=== PATIENT | male | born 1930 | race Caucasian/White ===

== ENCOUNTER → 2016-09-03 | Outpatient (CLI) | payer BC ==
[~2016-09-03] MED LIST: ACET-1311 PO; ADVIN25/60 INH; AMLO-110 PO; ASPI81TA28 PO; ATOR-24 PO; CHOL1000 PO; DONE1TAB11 PO; ENAL10TA88 PO; FINA5TAB PO; METO-217 PO; METO50TA16 PO; MULT-506 PO; NMN10 PO; NMN5 PO; PRLSR20 PO; TAMS0.4C38 PO
--- NOTE | 2016-09-03 18:33 | DIAGNOSTIC IMAGING REPORT ---
ULTRASOUND TESTES AND SCROTUM CLINICAL HISTORY: Testicular swelling. COMPARISON STUDY: Scrotal ultrasound dated 09/27/2015. TECHNIQUE: Real-time, grayscale, and color Doppler sonography of the testes and scrotum is performed. Images are reviewed in the transverse and longitudinal planes. FINDINGS: The testes are mildly atrophic and slightly heterogeneous in echotexture. The right testis measures 3.2 x 0.9 2.1 cm and the left testis measures 3.6 x 1.6 x 1.5 cm. No intratesticular mass is seen. Testicular blood flow is normal and symmetric. Normal Doppler waveforms are identified in both testes. The epididymal heads are normal as visualized. No varicocele or hydrocele is seen. A large right internal hernia is again noted which contains peristalsing bowel loops. This is similar appearance to the 09/27/2015 examination. IMPRESSION: 1. No acute testicular abnormality is seen. 2. A large right inguinal hernia containing peristalsing bowel loops is again noted. This was also seen on 09/27/2015. Electronically signed by: Chalo Penn M.D. 09/03/2016 6:32 PM Dictated Date/Time: 09/03/2016 6:29 PM
== END | disposition home or self-care (01) ==
LOC: C.ULTR 17:24
PROVIDERS: ATTEND Family Medicine
DX: N50.89 Other specified disorders of the male genital organs (principal); K40.90 Unilateral inguinal hernia, without obstruction or gangrene, not specified as recurrent

== ENCOUNTER 2017-01-10 21:58 | Emergency (ER) | payer BC ==
[~2017-01-10] VITALS: Ht 152.4 cm; Wt 66.6 kg
[~2017-01-10 21:58] MED LIST changes: -ACET-1311 PO; -AMLO-110 PO; -METO-217 PO; -NMN10 PO
[2017-01-10 22:01] VITALS: TEMP 36.7; Ht 152.4 cm; Wt 66.6 kg
[2017-01-10 22:48] LABS: BASO % 0.5 %; BASO ABS # 0.04 K/uL (0-0.2); COMPLETE YES; EOS % 2.4 %; HEMATOCRIT 34.7 % (42-52); IG% 0.1 %; LYMPH ABS # 0.78 K/uL (1.2-3.4); MEAN CELL VOLUME 91.8 fL (80-100); MEAN CORPUSCULAR HEMOGLOBIN 30.2 pg (25-34); MEAN CORPUSCULAR HGB CONC 32.9 g/dl (32-36); MEAN PLATELET VOLUME 9.4 fL (7.4-10.4); MONO % 3.8 %; NEUT % 84.2 %; PLATELET COUNT 214 K/uL (130-400); RED BLOOD COUNT 3.78 M/uL (4.7-6.1); WHITE BLOOD COUNT 8.65 K/uL (4.8-10.8)
--- NOTE | 2017-01-10 22:53 | DIAGNOSTIC IMAGING REPORT ---
SINGLE VIEW CHEST CLINICAL HISTORY: Vomiting. FINDINGS: An AP, portable, upright chest radiograph is compared to study dated 03/17/2016. The examination is degraded by portable technique and patient rotation. The patient is status post midline sternotomy. The heart is enlarged and there is atherosclerotic calcification of the thoracic aorta. The pulmonary vascular is noncongested. There is mild bibasilar atelectasis. The lungs and pleural spaces are otherwise clear. No pneumothorax is seen. The skeletal structures are osteopenic. The bony thorax is grossly intact. IMPRESSION: Cardiomegaly with no acute cardiopulmonary abnormality. Electronically signed by: Chalo Penn M.D. 01/10/2017 10:51 PM Dictated Date/Time: 01/10/2017 10:50 PM
[2017-01-10] MEDS ORDERED: NMN10 PO (22:54)
[2017-01-10] MEDS ORDERED: AMLO-110 PO (22:54)
[2017-01-10] MEDS ORDERED: METO-217 PO (22:54)
[2017-01-10] MEDS ORDERED: ACET-1311 PO (22:54)
[2017-01-10 23:08] LABS: BUN/CREATININE RATIO 19.5 (10-20); CREATININE 1.5 mg/dl (0.60-1.40); POTASSIUM 4.5 mmol/L (3.5-5.1)
[2017-01-10 23:54] LABS: URINE APPEARANCE CLEAR (CLEAR); URINE BILIRUBIN NEG (NEG); URINE COLOR YELLOW; URINE NITRITE NEG (NEG); URINE PH 6.5 (4.5-7.5); URINE SPECIFIC GRAVITY 1.018 (1.000-1.030); UROBILINOGEN NEG (NEG); ZZUR CULT IF INDIC CLEAN CATCH NO
[2017-01-11 00:02] LABS: MANUAL MICROSCOPIC REQUIRED? NO; REVIEW REQ? NO
--- NOTE | 2017-01-11 00:19 | EMERGENCY ROOM VISIT NOTE ---
ED Visit Note First contact with patient: 22:06 I did evaluate and examine this patient myself. I did guide management for the patient. I agree with the APC's assessment as discussed. Please see the APC's dictation for further details. I did independently review the 12-lead EKG, urinalysis, x-rays and blood work. The patient presented with 3 episodes of vomiting. He is currently asymptomatic. He does have a large nontender lower abdominal hernia. He will follow closely with his doctor.
[2017-01-11 00:45] VITALS: BP 176/78; PULSE 112; O2SAT 94
--- NOTE | 2017-01-11 00:47 | EMERGENCY ROOM VISIT NOTE ---
History First contact with patient: 22:06 Chief Complaint: VOMITING Stated Complaint: VOMITING Nursing Triage Summary: Pt from [facility]. Pt arrives with son. Pt vomited today after eating dinner at [facility]. History of Present Illness The patient is a 86 year old male who presents to the Emergency Room with complaints of multiple episodes of vomiting after eating dinner at 1730 this evening. Per son, patient ate roast beef, mashed potatoes and chicken noodle soup for dinner at [facility] this evening. After patient's son left the senior living, he was called at about 2100 and was told that the patient vomited 4 times. Per staff, patient said that it felt like something was caught in his throat, and after coughing to try to get it up, he became nauseous and vomited. Patient states that he felt better after vomiting, and denies having any abdominal pain throughout the episode. He is now feeling improved. Son states that he ate the same food as the patient this evening but he did not experience similar symptoms after eating. Patient has known left sided inguinal hernia but no increased pain to the area. Denies any other abdominal pain. Patient and son deny recent fevers, chills, sore throat, chest pain, or shortness of breath. Denies nausea or vomiting prior to onset this evening. Had a normal bowel movement this morning, no diarrhea, hematochezia or melena. No other complaints at this time. Review of Systems A complete 10 point review of systems was reviewed with the patient with pertinent positives and negatives as per history of present illness. All else were negative. Past Medical/Surgical History Medical Problems: (1) Altered mental state (2) Elevated troponin Family History Noncontributory secondary to age Social History Smoking Status: Never Smoker Drug Use: none Marital Status: Housing Status: senior living Occupation Status: retired Current/Historical Medications Scheduled Amlodipine (Norvasc), 5 MG PO DAILY Aspirin (Aspirin Ec), 81 MG PO QAM Atorvastatin (Lipitor), 40 MG PO HS Cholecalciferol (Vitamin D3), 1,000 INTER.UNIT PO QAM Enalapril (Vasotec), 10 MG PO QAM Finasteride (Proscar), 5 MG PO DAILY Fluticasone Prop/Salmeterol (Advair Diskus 250/50 60 Dose), 1 PUFF INH DAILY Memantine (Namenda), 10 MG PO QAM Metoprolol Succinate (Toprol Xl), 50 MG PO QAM Multivitamin (Multivitamin), 1 TAB PO QAM Tamsulosin Hcl (Flomax), 0.4 MG PO QPM Scheduled PRN Acetaminophen (Tylenol), 650 MG PO QID PRN for Pain or Fever Allergies Coded Allergies: No Known Allergies (Unverified , 01/10/17) NO NOTABLE ALLERGIES PER H&P Physical Exam Vital Signs Date Time Temp Pulse Resp B/P (MAP) Pulse Ox O2 Delivery O2 Flow Rate FiO2 01/11/17 00:45 112 20 176/78 94 01/11/17 00:15 112 20 176/78 94 Room Air 01/10/17 22:46 58 01/10/17 22:01 36.7 72 20 160/75 96 Room Air Physical Exam VITALS: Vitals are noted on the nurse's note and reviewed by myself. Vital signs stable. GENERAL: This is an 86-year-old male, in no acute distress, nondiaphoretic, well -developed well-nourished. SKIN: Capillary reflex less than 2 seconds. HEENT: Normocephalic. PERRLA. EOMI. Mucous membranes moist. Neck is supple without nuchal rigidity. HEART: Regular rate and rhythm without murmurs gallops or rubs. LUNGS: Clear to auscultation bilaterally without wheezes, rales or rhonchi. ABDOMEN: Positive bowel sounds x 4. Soft, nontender to palpation. There is a large left inguinal hernia which is reducible. There are no skin changes overlying the hernia. NEURO: Patient was alert and oriented to person and place. Medical Decision & Procedures ER Provider Diagnostic Interpretation: CHEST X-RAY: No acute cardiopulmonary abnormalities. ABDOMEN X-RAY: No bowel obstruction or free air. Normal bowel gas pattern. Laboratory Results 01/10/17 22:30 Red Blood Count 3.78, Mean Corpuscular Volume 91.8, Mean Corpuscular Hemoglobin 30.2, Mean Corpuscular Hemoglobin Concent 32.9, Mean Platelet Volume 9.4, Neutrophils (%) (Auto) 84.2, Lymphocytes (%) (Auto) 9.0, Monocytes (%) (Auto) 3.8, Eosinophils (%) (Auto) 2.4, Basophils (%) (Auto) 0.5, Neutrophils # (Auto) 7.28, Lymphocytes # (Auto) 0.78, Monocytes # (Auto) 0.33, Eosinophils # (Auto) 0.21, Basophils # (Auto) 0.04 01/10/17 22:30 Test 01/10/17 22:30 01/10/17 23:40 White Blood Count 8.65 K/uL (4.8-10.8) Red Blood Count 3.78 M/uL (4.7-6.1) Hemoglobin 11.4 g/dL (14.0-18.0) Hematocrit 34.7 % (42-52) Mean Corpuscular Volume 91.8 fL (80-100) Mean Corpuscular Hemoglobin 30.2 pg (25-34) Mean Corpuscular Hemoglobin Concent 32.9 g/dl (32-36) Platelet Count 214 K/uL (130-400) Mean Platelet Volume 9.4 fL (7.4-10.4) Neutrophils (%) (Auto) 84.2 % Lymphocytes (%) (Auto) 9.0 % Monocytes (%) (Auto) 3.8 % Eosinophils (%) (Auto) 2.4 % Basophils (%) (Auto) 0.5 % Neutrophils # (Auto) 7.28 K/uL (1.4-6.5) Lymphocytes # (Auto) 0.78 K/uL (1.2-3.4) Monocytes # (Auto) 0.33 K/uL (0.11-0.59) Eosinophils # (Auto) 0.21 K/uL (0-0.5) Basophils # (Auto) 0.04 K/uL (0-0.2) RDW Standard Deviation 45.3 fL (36.4-46.3) RDW Coefficient of Variation 13.5 % (11.5-14.5) Immature Granulocyte % (Auto) 0.1 % Immature Granulocyte # (Auto) 0.01 K/uL (0.00-0.02) Anion Gap 9.0 mmol/L (3-11) Est Creatinine Clear Calc Drug Dose 28.3 ml/min Estimated GFR () 48.2 Estimated GFR (Non- 41.6 BUN/Creatinine Ratio 19.5 (10-20) Calcium Level 9.0 mg/dl (8.5-10.1) Total Bilirubin 0.8 mg/dl (0.2-1) Direct Bilirubin 0.2 mg/dl (0-0.2) Aspartate Amino Transf (AST/SGOT) 23 U/L (15-37) Alanine Aminotransferase (ALT/SGPT) 25 U/L (12-78) Alkaline Phosphatase 100 U/L (45-117) Troponin I 0.017 ng/ml (0-0.045) Total Protein 7.4 gm/dl (6.4-8.2) Albumin 3.8 gm/dl (3.4-5.0) Lipase 91 U/L (73-393) Urine Color YELLOW Urine Appearance CLEAR (CLEAR) Urine pH 6.5 (4.5-7.5) Urine Specific Henderson 1.018 (1.000-1.030) Urine Protein 1+ (NEG) Urine Glucose (UA) NEG (NEG) Urine Ketones NEG (NEG) Urine Occult Blood 2+ (NEG) Urine Nitrite NEG (NEG) Urine Bilirubin NEG (NEG) Urine Urobilinogen NEG (NEG) Urine Leukocyte Esterase NEG (NEG) Urine WBC (Auto) 0 /hpf (0-5) Urine RBC (Auto) 10-30 /hpf (0-4) Urine Hyaline Casts (Auto) 0 /lpf (0-5) Urine Epithelial Cells (Auto) 5-10 /lpf (0-5) Urine Bacteria (Auto) NEG (NEG) Laboratory results reviewed by me ECG Rate (beats per minute): 59 Rhythm: sinus bradycardia Findings: T-wave inversion (Lateral), no acute ischemic change, no ectopy Medical Decision Differential diagnosis includes bowel obstruction, cardiac ischemia, aspiration , pneumonia, choking episode, among others. The patient is an 86-year-old male who presents today for evaluation after episode of vomiting. The patient is asymptomatic at this time. He denies any chest pain or abdominal pain. He does have a large hernia but this is reducible and does not appear to be incarcerated. Labs were unremarkable. Troponin was not elevated. EKG was unremarkable. Chest and abdominal x-rays were performed and read by radiology with no acute findings. By history, the patient seemed to have a choking episode which has resolved. I do feel he is safe to be discharged home. Aspiration precautions were reviewed with patient and his son. The patient was independently evaluated by Dr. Haas, ED attending physician, who agreed with my assessment and treatment plan. Based on the patient's presentation and work up, I feel the patient is stable for outpatient treatment. The patient was educated to return to the emergency department for any worsening of their current condition or new/concerning symptoms. He will follow up with his PCP. Medication reconciliation: I attest that I have personally reviewed the patient 's current medication list. Blood pressure screening: Patient was found to have an elevated blood pressure and was referred to their primary care provider for recheck and further treatment. Impression Primary Impression: Vomiting Departure Information Dispostion Home / Self-Care Condition GOOD Referrals Daniela James M.D. (PCP) Patient Instructions My [facility] [place] [facility] Additional Instructions Follow-up with your primary care provider this week. Return to the emergency department with chest pain, worsening cough, fevers or any other new/concerning symptoms.
--- NOTE | 2017-01-11 07:59 | DIAGNOSTIC IMAGING REPORT ---
ABDOMEN 2 VIEWS CLINICAL HISTORY: 86 years-old Male presenting with hernia, vomiting. TECHNIQUE: Upright and supine views of the abdomen were obtained. COMPARISON: Chest x-ray from 01/10/2017. FINDINGS: Normal bowel gas pattern. No bowel obstruction. No free intraperitoneal gas or evidence of pneumatosis. Multiple phleboliths noted in the pelvis. Atherosclerosis of the aortobiiliac arteries. Scoliotic curvature of the thoracolumbar spine with multilevel degenerative change. Median sternotomy wires and mediastinal surgical clips noted. Lung bases clear. IMPRESSION: 1. No evidence of bowel obstruction or free intra-abdominal gas. Electronically signed by: Miah Garcia 01/11/2017 7:58 AM Dictated Date/Time: 01/11/2017 7:55 AM
== END 2017-01-11 00:45 | disposition home or self-care (01) ==
LOC: C.EDB 21:59 → C.EDA 01-11 00:45
DX: R11.10 Vomiting, unspecified (principal); Z79.82 Long term (current) use of aspirin; Z79.899 Other long term (current) drug therapy

== ENCOUNTER → 2017-08-06 | Outpatient (CLI) | payer BC ==
[~2017-08-06] MED LIST changes: +ACET-1311 PO; +AMLO-110 PO; -DONE1TAB11 PO; +METO-217 PO; -METO50TA16 PO; +NMN10 PO; -NMN5 PO; -PRLSR20 PO
--- NOTE | 2017-08-06 17:46 | DIAGNOSTIC IMAGING REPORT ---
TWO VIEW CHEST CLINICAL HISTORY: Cough. FINDINGS: PA and lateral chest radiographs are compared to study dated 01/10/2017. The PA view is degraded by patient rotation. The patient is status post midline sternotomy. The heart is enlarged and there is atherosclerotic calcification of the thoracic aorta. The pulmonary vasculature is noncongested. There is chronic elevation of left hemidiaphragm with associated atelectasis. No airspace consolidation or pleural effusion is seen. There is no pneumothorax. The skeletal structures are osteopenic. The bony thorax appears intact. IMPRESSION: Cardiomegaly with no acute cardiopulmonary abnormality. Electronically signed by: Chalo Penn M.D. 08/06/2017 5:45 PM Dictated Date/Time: 08/06/2017 5:44 PM
== END | disposition home or self-care (01) ==
LOC: C.RAD1850 16:36
PROVIDERS: ATTEND Family Medicine
DX: R05 Cough (principal)

== ENCOUNTER 2017-09-18 14:40 | Emergency (ER) | payer BC ==
[2017-09-18 14:48] VITALS: TEMP 37.1; O2SAT 98
[2017-09-18 15:30] LABS: BASO % 0.4 %; BASO ABS # 0.03 K/uL (0-0.2); EOS % 3.3 %; EOS ABS # 0.22 K/uL (0-0.5); HEMATOCRIT 33.8 % (42-52); HEMOGLOBIN 11.3 g/dL (14.0-18.0); IG# 0.01 K/uL (0.00-0.02); LYMPH % 19.8 %; LYMPH ABS # 1.33 K/uL (1.2-3.4); MEAN CELL VOLUME 92.3 fL (80-100); MEAN CORPUSCULAR HEMOGLOBIN 30.9 pg (25-34); MEAN CORPUSCULAR HGB CONC 33.4 g/dl (32-36); MEAN PLATELET VOLUME 9.2 fL (7.4-10.4); MONO % 11.1 %; MONO ABS # 0.75 K/uL (0.11-0.59); NEUT % 65.3 %; NEUT ABS # 4.39 K/uL (1.4-6.5); PLATELET COUNT 195 K/uL (130-400); RED CELL DISTRIBUTION WIDTH CV 13.5 % (11.5-14.5); RED CELL DISTRIBUTION WIDTH SD 45.7 fL (36.4-46.3); WHITE BLOOD COUNT 6.73 K/uL (4.8-10.8)
[2017-09-18 15:40] LABS: PTT PATIENT 26.1 SECONDS (21.0-31.0)
[2017-09-18 15:47] LABS: BLOOD UREA NITROGEN 24 mg/dl (7-18); CALCIUM 8.6 mg/dl (8.5-10.1); CARBON DIOXIDE 28 mmol/L (21-32); CREATININE 1.64 mg/dl (0.60-1.40); GLUCOSE 93 mg/dl (70-99); LIPASE 47 U/L (73-393); POTASSIUM 4.4 mmol/L (3.5-5.1); SODIUM 137 mmol/L (136-145)
--- NOTE | 2017-09-18 15:48 | DIAGNOSTIC IMAGING REPORT ---
HEAD WITHOUT CONTRAST (CT) CT DOSE: 537.48 mGy.cm HISTORY: Mental status change confusion eval for strroke TECHNIQUE: Multiaxial CT images of the head were performed without the use of intravenous contrast. A dose lowering technique was utilized adhering to the principles of ALARA. Comparison: 03/17/2016 Findings: The paranasal sinuses and mastoid air cells are clear. The calvarium and skull base are intact. The ventricles and sulci are within normal limits. There is no mass, hematoma, midline shift, or acute infarct. Findings of mild cerebellar as well as cerebral atrophy. Moderate chronic small vessel change considered unchanged in the prior study. Impression: No acute intracranial abnormality. Age-related change. The above report was generated using voice recognition software. It may contain grammatical, syntax or spelling errors. Electronically signed by: Jatin Mott M.D. 09/18/2017 3:47 PM Dictated Date/Time: 09/18/2017 3:46 PM
[2017-09-18] MEDS ORDERED: ALBINS INH (15:52)
[2017-09-18] MEDS ORDERED: LOSA1TAB PO (15:52)
[2017-09-18] MEDS ORDERED: DTR/5 PO (15:52)
[2017-09-18] MEDS ORDERED: OMEP40CA41 PO (15:52)
[2017-09-18] MEDS ORDERED: MEMA1CAP PO (15:52)
--- NOTE | 2017-09-18 16:20 | DIAGNOSTIC IMAGING REPORT ---
CHEST 2 VIEWS ROUTINE CLINICAL HISTORY: eval for pna dyspnea COMPARISON STUDY: 08/06/2017 FINDINGS: Mild stable cardia megaly. Prior median sternotomy. Lungs are clear. Diaphragms are smooth. IMPRESSION: Mild stable cardiomegaly. No acute process. The above report was generated using voice recognition software. It may contain grammatical, syntax or spelling errors. Electronically signed by: Jatin Mott M.D. 09/18/2017 4:18 PM Dictated Date/Time: 09/18/2017 4:18 PM
[2017-09-18] MEDS ORDERED: SODIUM CHLORIDE 0.9% 250ML 250 ML IV STA (16:49)
--- NOTE | 2017-09-18 17:35 | DIAGNOSTIC IMAGING REPORT ---
(TESTICULAR) SCROTUM-CONT HISTORY: Hernia eval for mass/hernia COMPARISON: 09/03/2016 FINDINGS: Right testis: Large right inguinal hernia containing bowel is again noted. This appears similar compared to the prior study. The right testis itself is mildly atrophic with a maximum dimension of 2.9 cm. Normal vascular flow is present. Left testis: poorly seen as the patient declined complete evaluation. vascular flow is confirmed. IMPRESSION: 1. Moderately atrophic testis bilaterally showing no change from the prior study. 2. Vascular flow is confirmed to both testis. 3. Large bowel containing right inguinal hernia. This is similar as compared to the prior study. The above report was generated using voice recognition software. It may contain grammatical, syntax or spelling errors. Electronically signed by: Jatin Mott M.D. 09/18/2017 5:34 PM Dictated Date/Time: 09/18/2017 5:28 PM
[2017-09-18 18:26] VITALS: BP 177/91; PULSE 81; O2SAT 96
--- NOTE | 2017-09-18 20:44 | EMERGENCY ROOM VISIT NOTE ---
History Report prepared by [place]: Kiran Rice Under the Supervision of: Dr. Kiran Haas M.D. First contact with patient: 14:49 Chief Complaint: CONFUSION Stated Complaint: CONFUSION History of Present Illness HPI is limited due to dementia. The patient is a 86 year old male who presents to the Emergency Room via EMS due to worsening confusion that began today. Nurse states that the patient has associated symptoms of shortness of breath. Staff at his residence stated that he was wheezing. She adds that the patient has not urinated today. Nurse states that the patient is from [facility]. Patient denies trouble communicating, headaches, shortness of breath, chest pain , fevers, weakness, and numbness. He states he feels perfectly fine. He has no abdominal pain, vomiting or diarrhea. He states he is not sure why he is here. He does not remember feeling short of breath earlier today and does not feel short of breath now. Pertinent past medical history includes dementia. Patient states that he "feels good" in the ER. Source of History: patient History Limited By: dementia Onset: Today Quality: other (Confusion) Timing: resolved Modifying Factors (Relieving): other (None) Associated Symptoms: + urinary symptoms, No fevers, No headache, No chest pain, No SOB, No weakness, No numbness Note: Patient denies trouble communicating. Review of Systems See HPI for pertinent positives & negatives. A total of 10 systems reviewed and were otherwise negative. Past Medical & Surgical Medical Problems: (1) Altered mental state (2) Elevated troponin Family History Noncontributory secondary to age Social History Smoking Status: Never Smoker Drug Use: none Marital Status: Housing Status: care home Occupation Status: retired Current/Historical Medications Scheduled Aspirin (Aspirin Ec), 81 MG PO QAM Atorvastatin (Lipitor), 40 MG PO HS Cholecalciferol (Vitamin D3), 1,000 INTER.UNIT PO QAM Finasteride (Proscar), 5 MG PO DAILY Fluticasone Prop/Salmeterol (Advair Diskus 250/50 60 Dose), 1 PUFF INH DAILY Losartan Potassium (Cozaar), 25 MG PO QAM Memantine HCl-Donepezil HCl (Namzaric 28-10 mg), 1 CAP PO QAM Metoprolol Succinate (Toprol Xl), 50 MG PO QAM Multivitamin (Multivitamin), 1 TAB PO QAM Omeprazole (Prilosec), 40 MG PO QAM Oxybutynin Chloride (Ditropan), 5 MG PO BID Tamsulosin Hcl (Flomax), 0.4 MG PO QPM Scheduled PRN Acetaminophen (Tylenol), 650 MG PO QID PRN for Pain or Fever Albuterol Sulf (Albuterol Sulfate), 1 DOSE INH Q6H PRN for Cough Allergies Coded Allergies: No Known Allergies (Unverified , 09/18/17) NO NOTABLE ALLERGIES PER H&P Physical Exam Vital Signs Date Time Temp Pulse Resp B/P (MAP) Pulse Ox O2 Delivery O2 Flow Rate FiO2 09/18/17 18:26 81 18 177/91 96 Room Air 09/18/17 16:45 89 18 182/98 94 Room Air 09/18/17 15:16 63 09/18/17 14:48 37.1 65 18 174/84 98 Room Air 09/18/17 14:48 98 Room Air Physical Exam Constitutional: Vital signs reviewed. Eyes: Pupils are equal round reactive to light. Conjunctiva are noninjected. ENT: Pharynx is clear without erythema or exudate. Mucous membranes are moist. Neck supple without meningeal signs. Respiratory: Clear to auscultation bilaterally. Breath sounds are equal bilaterally. Cardiovascular: Regular rate and rhythm. No rubs or gallops. GI: Soft, nondistended and nontender. Bowel sounds are present. : Scrotum enlarged to size of grapefruit. No tenderness or erythema. Musculoskeletal: No peripheral edema. No lower extremity tenderness. Integumentary: No cyanosis. Neurological: The patient is awake and alert. He is oriented to person only. Cranial nerves II-XII are intact. Motor is 5 out of 5 all extremities. Sensation is intact to light touch all extremities. Normal speech. No pronator drift. No limb ataxia. Psychiatric: Normal affect. Medical Decision & Procedures ER Provider Diagnostic Interpretation: Radiology results as stated below per my review and the radiologist's interpretation: (TESTICULAR) SCROTUM-CONT HISTORY: Hernia eval for mass/hernia COMPARISON: 09/03/2016 FINDINGS: Right testis: Large right inguinal hernia containing bowel is again noted. This appears similar compared to the prior study. The right testis itself is mildly atrophic with a maximum dimension of 2.9 cm. Normal vascular flow is present. Left testis: poorly seen as the patient declined complete evaluation. vascular flow is confirmed. IMPRESSION: 1. Moderately atrophic testis bilaterally showing no change from the prior study. 2. Vascular flow is confirmed to both testis. 3. Large bowel containing right inguinal hernia. This is similar as compared to the prior study. The above report was generated using voice recognition software. It may contain grammatical, syntax or spelling errors. Electronically signed by: Jatin Mott M.D. 09/18/2017 5:34 PM CHEST 2 VIEWS ROUTINE CLINICAL HISTORY: eval for pna dyspnea COMPARISON STUDY: 08/06/2017 FINDINGS: Mild stable cardia megaly. Prior median sternotomy. Lungs are clear. Diaphragms are smooth. IMPRESSION: Mild stable cardiomegaly. No acute process. The above report was generated using voice recognition software. It may contain grammatical, syntax or spelling errors. Electronically signed by: Jatin Mott M.D. 09/18/2017 4:18 PM HEAD WITHOUT CONTRAST (CT) CT DOSE: 537.48 mGy.cm HISTORY: Mental status change confusion eval for strroke TECHNIQUE: Multiaxial CT images of the head were performed without the use of intravenous contrast. A dose lowering technique was utilized adhering to the principles of ALARA. Comparison: 03/17/2016 Findings: The paranasal sinuses and mastoid air cells are clear. The calvarium and skull base are intact. The ventricles and sulci are within normal limits. There is no mass, hematoma, midline shift, or acute infarct. Findings of mild cerebellar as well as cerebral atrophy. Moderate chronic small vessel change considered unchanged in the prior study. Impression: No acute intracranial abnormality. Age-related change. The above report was generated using voice recognition software. It may contain grammatical, syntax or spelling errors. Electronically signed by: Jatin Mott M.D. 09/18/2017 3:47 PM Laboratory Results 09/18/17 15:10 Red Blood Count 3.66, Mean Corpuscular Volume 92.3, Mean Corpuscular Hemoglobin 30.9, Mean Corpuscular Hemoglobin Concent 33.4, Mean Platelet Volume 9.2, Neutrophils (%) (Auto) 65.3, Lymphocytes (%) (Auto) 19.8, Monocytes (%) (Auto) 11.1, Eosinophils (%) (Auto) 3.3, Basophils (%) (Auto) 0.4, Neutrophils # (Auto ) 4.39, Lymphocytes # (Auto) 1.33, Monocytes # (Auto) 0.75, Eosinophils # (Auto ) 0.22, Basophils # (Auto) 0.03 09/18/17 15:10 Test 09/18/17 15:10 09/18/17 15:18 09/18/17 15:20 White Blood Count 6.73 K/uL (4.8-10.8) Red Blood Count 3.66 M/uL (4.7-6.1) Hemoglobin 11.3 g/dL (14.0-18.0) Hematocrit 33.8 % (42-52) Mean Corpuscular Volume 92.3 fL (80-100) Mean Corpuscular Hemoglobin 30.9 pg (25-34) Mean Corpuscular Hemoglobin Concent 33.4 g/dl (32-36) Platelet Count 195 K/uL (130-400) Mean Platelet Volume 9.2 fL (7.4-10.4) Neutrophils (%) (Auto) 65.3 % Lymphocytes (%) (Auto) 19.8 % Monocytes (%) (Auto) 11.1 % Eosinophils (%) (Auto) 3.3 % Basophils (%) (Auto) 0.4 % Neutrophils # (Auto) 4.39 K/uL (1.4-6.5) Lymphocytes # (Auto) 1.33 K/uL (1.2-3.4) Monocytes # (Auto) 0.75 K/uL (0.11-0.59) Eosinophils # (Auto) 0.22 K/uL (0-0.5) Basophils # (Auto) 0.03 K/uL (0-0.2) RDW Standard Deviation 45.7 fL (36.4-46.3) RDW Coefficient of Variation 13.5 % (11.5-14.5) Immature Granulocyte % (Auto) 0.1 % Immature Granulocyte # (Auto) 0.01 K/uL (0.00-0.02) Prothrombin Time 10.5 SECONDS (9.0-12.0) Prothromb Time International Ratio 1.0 (0.9-1.1) Activated Partial Thromboplast Time 26.1 SECONDS (21.0-31.0) Partial Thromboplastin Ratio 1.0 Anion Gap 5.0 mmol/L (3-11) Estimated GFR () 43.2 Estimated GFR (Non- 37.3 BUN/Creatinine Ratio 14.8 (10-20) Calcium Level 8.6 mg/dl (8.5-10.1) Lipase 47 U/L (73-393) Bedside Troponin I < 0.030 ng/ml (0-0.045) Urine Color YELLOW Urine Appearance CLEAR (CLEAR) Urine pH 6.0 (4.5-7.5) Urine Specific [place] 1.015 (1.000-1.030) Urine Protein NEG (NEG) Urine Glucose (UA) NEG (NEG) Urine Ketones NEG (NEG) Urine Occult Blood 1+ (NEG) Urine Nitrite NEG (NEG) Urine Bilirubin NEG (NEG) Urine Urobilinogen NEG (NEG) Urine Leukocyte Esterase NEG (NEG) Urine WBC (Auto) 1-5 /hpf (0-5) Urine RBC (Auto) 5-10 /hpf (0-4) Urine Hyaline Casts (Auto) 1-5 /lpf (0-5) Urine Epithelial Cells (Auto) 10-20 /lpf (0-5) Urine Bacteria (Auto) NEG (NEG) Laboratory results as reviewed by me. Medications Administered Medications (Trade) Dose Ordered Sig/Kay Route Start Time Stop Time Status Last Admin Dose Admin Sodium Chloride 250 ml @ 999 mls/hr Q16M STAT IV 09/18/17 16:49 09/18/17 17:04 DC 09/18/17 17:34 999 MLS/HR ED Course 1450: The patient was evaluated in room C2. A complete history and physical exam was performed. 1649: Sodium Chloride 250 ml @ 999 mls/hr IV 1742: Upon reevaluation, the patient appeared to have improvement of his symptoms. He states that he has no complaints and has been urinating using the Sanches catheter. I discussed khalidaight's findings with him. He verbalized agreement of the treatment plan. He was discharged home. Medical Decision This is an 86-year-old male who presents with increased confusion and shortness of breath. Differential diagnosis includes pneumonia, bronchitis, COPD, anemia , dementia, UTI. I did perform a limited focused review of portions of the patient's old chart on the electronic medical record. The patient has had no recent pertinent visits to this hospital. I did evaluate the patient as noted above. Patient does not know why he is here. He has no complaints. He was sent from [facility] because they stated that he seemed more confused and was short of breath. He denies ever being short of breath. His lungs are clear to auscultation bilaterally. He is not tachypneic or hypoxic. They also stated that he has not urinated this morning. IV access was established. The patient was placed on a continuous laboratory monitor. I did order and personally review the patient's 12-lead EKG and chest x-ray as described above. I did order and review the patient's blood work as noted in the electronic medical record. I did order a CT of the head. I did review the images myself as well as the radiology report as described above. There is no evidence of stroke. A Sanches catheter was placed. He does have a thickened scrotal swelling. Ultrasound of the scrotum was obtained which showed an old inguinal hernia. I did reassess the patient. He has no complaints. I did recommend he follow closely with his doctor. He was discharged in good condition. Medication Reconcilliation Current Medication List: was personally reviewed by me Blood Pressure Screening Patient's blood pressure: Elevated blood pressure Blood pressure disposition: Referred to PCP Impression Primary Impression: Anemia Additional Impressions: Chronic kidney disease Right inguinal hernia Scribe Attestation The scribe's documentation has been prepared under my direct and personally reviewed by me in its entirety. I confirm that the note above accurately reflects all work, treatment, procedures, and medical decision making performed by me. Departure Information Dispostion Home / Self-Care Referrals Daniela James M.D. (PCP) Forms HOME CARE DOCUMENTATION FORM, IMPORTANT VISIT INFORMATION, WORK / SCHOOL INSTRUCTIONS Patient Instructions My [facility] Additional Instructions You have been examined and treated today on an emergency basis only. This is not a substitute for, or an effort to provide, complete comprehensive medical care. It is impossible to recognize and treat all injuries or illnesses in a single emergency department visit. It is therefore important that you follow up closely with your physician. Call as soon as possible for an appointment. Return for worsening symptoms or if you develop chest pain, trouble breathing, headache, fever, vomiting, or any other concerning symptoms. Problem Qualifiers Primary Impression: Anemia Anemia type: unspecified type Qualified Codes: D64.9 - Anemia, unspecified Additional Impressions: Chronic kidney disease Chronic kidney disease stage: unspecified stage Qualified Codes: N18.9 - Chronic kidney disease, unspecified
== END 2017-09-18 18:53 | disposition home or self-care (01) ==
LOC: EDBD 14:40 → C.EDC 14:42
DX: D64.9 Anemia, unspecified (principal); N18.9 Chronic kidney disease, unspecified; K40.90 Unilateral inguinal hernia, without obstruction or gangrene, not specified as recurrent; R03.0 Elevated blood-pressure reading, without diagnosis of hypertension; Z79.82 Long term (current) use of aspirin; Z86.59 Personal history of other mental and behavioral disorders

== ENCOUNTER → 2017-10-01 | Outpatient (CLI) | payer BC ==
[~2017-10-01] MED LIST changes: +ALBINS INH; -AMLO-110 PO; +DTR/5 PO; -ENAL10TA88 PO; +LOSA1TAB PO; +MEMA1CAP PO; -NMN10 PO; +OMEP40CA41 PO
--- NOTE | 2017-10-01 11:53 | DIAGNOSTIC IMAGING REPORT ---
VIDEO SWALLOW CLINICAL HISTORY: Cough with eating. COMPARISON STUDY: No previous studies for comparison. Fluoroscopy time: 2 minutes. FINDINGS: No aspiration was noted within liquids, nectar thick liquids, pudding or crackers with paste. Swallowing mechanism was intact. No was made of severe esophageal dysmotility. The esophagus is suboptimally assessed utilizing this technique. IMPRESSION: 1. No tracheal aspiration. Intact swallowing mechanism. 2. Severe esophageal dysmotility. 3. Full recommendations by speech pathology to follow. Electronically signed by: Dao Prakash M.D. 10/01/2017 11:51 AM Dictated Date/Time: 10/01/2017 11:50 AM
--- NOTE | 2017-10-01 13:20 | SWALLOWING EVALUATION ---
HISTORY: This 65 year-old man, from [facility], was referred for a VFSS at [facility] secondary to complaints of coughing with eating. Pt. has a past medical history significant for Alz Dementia, HTN, asthma vs COPD, CAD, and inguinal hernia. He has had no previous speech therapy at this facility. Currently the patient's diet level is regular with thins. Pt.'s son reported that he was being seen be a speech pathologist at dinner meal yesterday however that was all he was able to report. PROCEDURE: The patient was seen in the Radiology Department of [facility] for the VFSS. Cursory examination of the oral cavity revealed adequate dentition. Movement of the articulators was WNL. The patient was seated on a standard chair and was viewed in both the Anterior-Posterior (A-P) and Lateral planes. Volitional phonation exercises completed in the A-P plane revealed bilateral vocal fold movement and vocal intensity within functional limits. In the lateral plane, the patient was given the following barium-infused boluses: 1 tsp thin barium with oral hold 1x, self presented single cup swallow-thin barium 1x, self presented serial cup swallow 1x. self presented single cup swallow- nectar thick barium 1x, self presented serial cup swallows 1x. Esophageal scan was completed with 1 tsp barium pudding. RESULTS: Oral Phase: Pt. had no labial escape of any food or liquid items presented. Pt. demonstrated a cohesive bolus between tongue and palatal seal. Timely and efficient chewing and mashing was observed with all consistencies as well as brisk tongue motion and complete oral clearance. Initiation of pharyngeal swallow began with bolus head in the valleculae. Overall WFL for oral phase of swallow. Pharyngeal Phase: Soft Palate Elevation was complete for all boluses. Laryngeal elevation was slightly reduced however movement of thyroid cartilage with complete approximation of arytenoids to epiglottic base. Anterior Hyoid excursion was WFL and complete epiglottic inversion noted. Laryngeal Vestibular closure was complete and a thin column of barium noted in laryngeal vestibule as well as on the valleculae. This was cleared with double swallow. Tongue base retraction was noted with all consistencies and tongue base made effective contact with posterior pharyngeal wall throughout study. Mild pharyngeal residue was observed and able to be cleared with double swallow. Overall WFL for pharyngeal phase of the swallow. Pt. did NOT aspirate or penetrate thins or nectar food items presented. Esophageal Phase: Opening and closing of the UES noted. Pt. presented with Severe Esophageal dysfunction with retrograde motion. Radiology report indicates: FINDINGS: No aspiration was noted within liquids, nectar thick liquids, pudding or crackers with paste. Swallowing mechanism was intact. No was made of severe esophageal dysmotility. The esophagus is suboptimally assessed utilizing this technique. IMPRESSION: 1. No tracheal aspiration. Intact swallowing mechanism. 2. Severe esophageal dysmotility. 3. Full recommendations by speech pathology to follow. SUMMARY/RECOMMENDATIONS: Overall pt. presented as WFL for oral-pharyngeal stages of the swallow. Severe esophageal dysmotility Recommendin. SLIPPERY moist regular diet with thin liquids. 2. GI Consult 3. GERD precautions - upright for 30 min after all intake, no intake 30 min before bed, keep head of bed elevated at least 30 degrees at all times, alternate consistencies. Pt. and son were given written GERD precautions and diet recommendations. Procedure paperwork was completed and sent with family to be returned to detention with results and recommendations of testing. Thank you for referral of this patient. Please contact me at if any additional information is needed.
== END | disposition home or self-care (01) ==
LOC: C.RAD 11:11
PROVIDERS: ATTEND Family Medicine
DX: R05 Cough (principal)